=== PATIENT | male | born 1975 | race Caucasian/White ===

== ENCOUNTER 2017-01-09 17:45 | Emergency (ER) | payer MEDICARE ==
[~2017-01-09 17:45] MED LIST: ABILIFY15 PO; ABILIFY20 MG PO; ACET500CAP PO; AMOXIL875 MG PO; ASAB PO; ATV1 PO; AUG875 PO; BACDS PO; BUM2 PO; CONSTULOSE PO; COR40 PO; DEMA20 PO; FLINTSTONE3 PO; FLONASE NAS; FLUPHENAZINE2.5 MG OR; FLUPHENAZINE5 MG OR; FLUPHENAZINE5 MG PO; HUMALOG SC; HUMALOGPEN SC; L20 PO; L40 PO; LACT30UDL PO; LANTUS SC; LEVEMFLXPN SC; LEVEMIR SC; LOP100 PO; MAGNESIUM 500MG PO; MAGNESIUM OXIDE PO; MAGNESIUM PO; MAGOX4 PO; MAGTRATE500 MG PO; MUCINEX600 MG PO; NASACORTAQ NAS; NOVOLOG SC; OXYCOD; OXYCOD PO; PROAMATINE10 MG PO; PROGRAF1 PO; PROTONIX PO; REM15 PO; REMERON30 MG PO; SEROQUEL XR150 MG PO; SEROQUEL XR200 MG PO; SEROQUEL1C PO; SEROQUEL300 MG PO; SPIRO50 PO; THERGRANM PO; TUMSROLL PO; ULTRAM50 PO; VITA10 PO; VITAMIN A8000 UNIT PO; VITAMIN D1000 UNI1 PO; VITAMIN D3 PO; VITAMIN D31000 UNIT PO; VITAMIN D400 UNI1 PO; XIFAXAN PO; XIFAXAN550 MG PO; ZORTRESS 0.75 MG PO; [UNRECOGNIZED DRUG - OTHER] PO
[2017-01-09 18:34] LABS: BASOPHILS 0.2 %; BASOPHILS ABSOLUTE 0.01 10/3/uL (0.0-0.16); EOSINOPHILS 2.6 %; EOSINOPHILS ABSOLUTE 0.14 10/3/uL (0.0-0.53); ER CBC TAT 0 Hrs 08 Mins; HEMATOCRIT 37.6 % (40.0-51.0); IMMATURE GRANULOCYTES 0.4 %; IMMATURE GRANULOCYTES ABSOLUTE 0.02 10/3/uL (0.0-0.11); LYMPHOCYTES 25.3 %; LYMPHOCYTES ABSOLUTE 1.38 10/3/uL (0.67-4.30); MANUAL DIFF NO %; MEAN CORPUS HGB CONC 34.6 g/dL (32.0-36.0); MEAN CORPUSCULAR HEMOGLOB 28.7 pg (26.0-34.0); MEAN PLATELET VOLUME 9.3 fL (9.2-13.0); MONOCYTES 8.8 %; MONOCYTES ABSOLUTE 0.48 10/3/uL (0.21-1.20); NEUTROPHILS 62.7 %; NEUTROPHILS ABSOLUTE 3.43 10/3/uL (2.02-8.40); PLATELET COUNT 147 10/3/uL (150-400); RBC DISTRIBUTION WIDTH 15.6 % (12.0-16.0); RED CELL COUNT 4.53 10/6/uL (4.7-6.1); WHITE BLOOD CELLS 5.5 10/3/uL (4.5-10.5)
[2017-01-09 18:42] LABS: INTERNATIONAL NORMAL RATI 1.2 UNITS (-); PARTIAL THROMBO TIME 35.5 SEC (22.5-37.2)
[2017-01-09 18:45] LABS: PROTIME (NOT ORD) 14.9 SEC (12.0-14.5)
[2017-01-09 18:50] LABS: ALBUMIN 3.3 G/DL (3.5-5.0); BUN (BLOOD UREA NITROGEN) 11 MG/DL (6-23); CALCIUM, SERUM 8.7 MG/DL (8.5-10.4); CHEST PAIN PROFILE TAT 0 Hrs 24 Mins; CHLORIDE, SERUM 107 MMOL/L (96-112); CO2 (CARBON DIOXIDE) 27 MMOL/L (24-34); GFR AFRICAN AMERICAN 109 ML/MIN (>=60); GFR NON AFRICAN AMERICAN 94 ML/MIN (>=60); POTASSIUM, SERUM 4.6 MMOL/L (3.5-5.3); SGOT(AST) 12 U/L (5-40); SGPT(ALT) 49 U/L (5-65); SODIUM, SERUM 141 MMOL/L (135-148); TOTAL BILIRUBIN 0.5 MG/DL (0-1.2); TOTAL PROTEIN 7.3 G/DL (6.0-8.5); TROPONIN I <0.02 NG/ML (<0.05)
[2017-01-09 18:51] LABS: ALKALINE PHOSPHATASE 164 U/L (45-117); DIRECT BILIRUBIN 0.2 MG/DL (0.0-0.4); GLUCOSE, SERUM 94 MG/DL (60-99); INDIRECT BILIRUBIN(NOT ORDER) 0.3 MG/DL (0.1-0.9); LACTATE 1.4 MMOL/L (0.3-2.4)
[2017-01-09 18:57] LABS: INFLUENZA A SCREEN NEGATIVE (NEGATIVE); INFLUENZA B SCREEN NEGATIVE (NEGATIVE)
[2017-01-09 19:08] LABS: B NATRIURETIC PEPTIDE (BNP) 221.9 PG/ML (< 100.0)
[2017-01-09 19:32] LABS: SALICYLATE 4.6 MG/DL (-)
[2017-01-09 19:33] LABS: ACETAMINOPHEN LEVEL (TYLENOL) < 2.0 MCG/ML (10.0-20.0); ALCOHOL < 10 MG/DL (0)
[2017-01-09 19:36] LABS: ALLENS TEST Pos; BE (BASE EXCESS) -1.9 MEQ/L (0 +/- 2.5); CARBOXYHEMOGLOBIN 2.1 % (0-3); HCO3 (ACTUAL BICARBONATE) 21.8 MEQ/L (23-27); HEMOBLOGIN CONTENT 12.8 G/DL (14-18); INSTRUMENT SERIAL # 8087; METHEMOGLOBIN 0.3 % (0-3); O2 CONTENT 16.9 VOL% (18-24); OPERATOR ID 14335; PCO2 (CO2 TENSION) 34 MMHG (35-45); PO2 (O2 TENSION) 75 MMHG (79-93); SAMPLE Arterial; pH 7.43 (7.37-7.43)
[2017-01-09 20:25] LABS: AMPHETAMINES (NOT ORD) NEG (NEG); BARBITURATES (NOT ORDERED NEG (NEG); BENZODIAZEPINES (NOT ORD) POS (NEG); CANNABINOIDS (THC) NEG (NEG); COCAINE (NOT ORDERED) NEG (NEG); OPIATES NEG (NEG); PHENCYCLIDINE(PCP) NEG (NEG); TRICYCLICS POS (NEG)
== END 2017-01-09 21:46 | disposition home or self-care (01) ==
LOC: ER 17:45
PROVIDERS: Hospitalist
DX: F31.9 Bipolar disorder, unspecified (principal); F20.9 Schizophrenia, unspecified; F19.10 Other psychoactive substance abuse, uncomplicated; E11.9 Type 2 diabetes mellitus without complications; Z87.891 Personal history of nicotine dependence; Z94.4 Liver transplant status; Z79.4 Long term (current) use of insulin; Z79.82 Long term (current) use of aspirin; Z79.899 Other long term (current) drug therapy
CPT/HCPCS: 36600; 70450; 71010; 80048; 80076; 80305; 80307; 82140; 82805; 83605; 83735; 83880; 84484; 85025; 85610; 85730; 87040; 87804; 99285